=== PATIENT | female | born 1970 | race Caucasian/White ===

== ENCOUNTER 2018-05-13 20:32 | Emergency (ER) | payer BC ==
[~2018-05-13] VITALS: Ht 175.3 cm; Wt 73.9 kg
[2018-05-13 20:34] VITALS: BP_SYST 134
[2018-05-13] MEDS ORDERED: IBUPROFEN 600 MG TABLET PO ONE (21:45)
[2018-05-13 22:43] VITALS: BP_SYST 134
== END 2018-05-13 22:43 | disposition home or self-care (01) ==
LOC: SED 20:32
DX: M79.671 Pain in right foot (principal); R03.0 Elevated blood-pressure reading, without diagnosis of hypertension; Z88.5 Allergy status to narcotic agent; Z88.6 Allergy status to analgesic agent
CPT/HCPCS: 93971; 99284